=== PATIENT | female | born 1950 | race American Indian/Alaskan Native ===

== ENCOUNTER 2016-12-21 12:45 | Emergency (ER) | payer MEDICARE ==
[2016-12-21 12:59] VITALS: BP 129/67
[2016-12-21 14:21] LABS: Basophils % (Auto) 0.8 % (0.0-1.8); Eosinophils % (Auto) 3.8 % (0.0-4.3); Hematocrit 38.1 % (30.3-42.9); Hemoglobin 11.9 gm/dl (10.1-14.3); Mean Corpuscular HGB Conc 31 % (30-34); Mean Corpuscular Hemoglobin 27 pg (28-32); Mean Corpuscular Volume 87 fl (79-97); Platelet Count 271 K/mm3 (140-440); Red Cell Distribution Width 14.8 % (13.2-15.2); White Blood Count 5.2 K/mm3 (4.5-11.0)
[2016-12-21 15:42] LABS: Albumin 4.4 g/dL (3.9-5); Albumin/Globulin Ratio 1.4 %; BUN/Creatinine Ratio 4.34; Bilirubin,Total 0.4 mg/dL (0.1-1.2); Calcium 9.1 mg/dL (8.4-10.2); Chloride 94.4 mmol/L (98-107); Potassium 4.1 mmol/L (3.6-5.0); Total Protein 7.6 g/dL (6.3-8.2)
--- NOTE | 2016-12-21 15:51 | XRay Report ---
FINAL REPORT EXAM: XR ABDOMEN 2V HISTORY: Abdominal Pain TECHNIQUE: Supine and erect views of the abdomen PRIORS: None. FINDINGS: The bowel gas pattern is nonspecific. No free air is identified. Soft tissues have no evidence for mass shadows. Amorphous rounded calcification in the left pelvis is likely due to underlying fibroid formation. Numerous other calcifications in the pelvis have central lucency, likely phleboliths. The bony structures are intact. IMPRESSION: Nonspecific, nonobstructive bowel gas pattern with no acute process noted.
--- NOTE | 2016-12-21 16:11 | Emergency Department Report ---
ED Abdominal Pain HPI - General Chief Complaint: Abdominal Pain Stated Complaint: UNABLE TO HAVE A BOWEL MOVEMENT Time Seen by Provider: 12/21/16 15:53 Source: patient, family Mode of arrival: Ambulatory Limitations: Other - History of Present Illness MD Complaint: abdominal pain -: week(s) (ONE WEEK) Location: diffuse Radiation: none Migration to: no migration Severity scale (0 -10): 3 Quality: fullness Associated Symptoms: constipation. denies: nausea, vomiting - Related Data Previous Rx's Medication Instructions Recorded Last Taken Type Lactulose 10 gm PO DAILY PRN #100 ml 12/21/16 Unknown Rx Na Phos,M-B/Na Phos,Di-Ba [Fleet 118 ml RC ONCE #1 enema 12/21/16 Unknown Rx Enema] Allergies Allergy/AdvReac Type Severity Reaction Status Date / Time Unable to Assess Allergy Unverified 12/21/16 12:52 ED Review of Systems ROS: Stated complaint: UNABLE TO HAVE A BOWEL MOVEMENT Other details as noted in HPI Comment: All other systems reviewed and negative Constitutional: denies: chills, fever Respiratory: denies: cough, shortness of breath, SOB with exertion Cardiovascular: denies: chest pain, palpitations Gastrointestinal: abdominal pain, constipation. denies: nausea, vomiting, diarrhea, hematemesis, melena, hematochezia Neurological: denies: headache ED Past Medical Hx - Past Medical History Hx Hypertension: Yes Hx Renal Disease: Yes (M-W-F) Additional medical history: VISUALLY IMPAIRED - Surgical History Additional Surgical History: FISTULA LEFT ARM - Social History Smoking Status: Never Smoker Substance Use Type: None - Medications Home Medications: Home Medications Medication Instructions Recorded Confirmed Last Taken Type Lactulose 10 gm PO DAILY PRN #100 ml 12/21/16 Unknown Rx Na Phos,M-B/Na Phos,Di-Ba [Fleet 118 ml RC ONCE #1 enema 12/21/16 Unknown Rx Enema] ED Physical Exam - General Limitations: No Limitations, Other General appearance: alert, in no apparent distress - Neck Neck exam: Present: normal inspection. Absent: tenderness - Respiratory Respiratory exam: Present: normal lung sounds bilaterally. Absent: respiratory distress, chest wall tenderness, decreased breath sounds - Cardiovascular Cardiovascular Exam: Present: regular rate, normal heart sounds - GI/Abdominal GI/Abdominal exam: Present: soft, distended, normal bowel sounds. Absent: tenderness, guarding, rebound, rigid, organomegaly, mass, bruit, pulsatile mass , hernia - Rectal Rectal exam: Present: deferred - Neurological Exam Neurological exam: Present: alert, oriented X3 - Skin Skin exam: Present: warm, dry ED Course Vital Signs 12/21/16 12/21/16 12:57 13:43 Temperature 98.1 F Pulse Rate 66 Respiratory 18 Rate Blood Pressure 129/67 O2 Sat by Pulse 98 100 Oximetry ED Medical Decision Making - Lab Data Result diagrams: 12/21/16 13:59 12/21/16 14:58 Critical care attestation.: If time is entered above; I have spent that time in minutes in the direct care of this critically ill patient, excluding procedure time. ED Disposition Clinical Impression: Abdominal pain, Constipation Disposition: - TO HOME OR SELFCARE Is pt being admited?: No Does the pt Need Aspirin: No Condition: Stable Instructions: Abdominal Pain (ED) Prescriptions: Lactulose 10 gm PO DAILY PRN #100 ml PRN Reason: Constipation Na Phos,M-B/Na Phos,Di-Ba [Fleet Enema] 118 ml RC ONCE #1 enema
== END 2016-12-21 16:25 | disposition home or self-care (01) ==
LOC: ED 12:45
DX: K59.00 Constipation, unspecified (principal); R10.84 Generalized abdominal pain; I10 Essential (primary) hypertension
CPT/HCPCS: 36415; 74020; 80053; 85025